=== PATIENT | female | born 1950 | race African-American/Black ===

== ENCOUNTER 2017-03-06 10:52 | Day surgery (SDC) | payer MEDICARE ==
[~2017-03-06 10:52] MED LIST: Acetaminophen TAB* 325 MG PO PRN; Buffered Lidocaine 0.9% SYRIN* 5 ML/SYR SYRINGE INTRADERM ONE
[2017-03-06] MEDS ORDERED: Midazolam* 1 MG/ML 5 ML VIAL (5 MG) ONE (13:36)
[2017-03-06] MEDS ORDERED: Lidocaine 1% MPF* 2 ML VIAL ONE (14:19)
[2017-03-06] MEDS ORDERED: Buffered Lidocaine 0.9% SYRIN* 5 ML/SYR SYRINGE ONE (14:19)
[2017-03-06] MEDS ORDERED: Cyclopentolate 1% OPTH.SOL* 2 ML BTL ONE (14:19)
[2017-03-06] MEDS ORDERED: Ketorolac 0.5% OPHTH (NF) 0.5 % 5 ML BTL ONE (14:19)
[2017-03-06] MEDS ORDERED: acetaZOLAMIDE TAB* 250 MG ONE (14:19)
[2017-03-06] MEDS ORDERED: Neomycin/Polymy/Dex OPTH.SUSP* MAXITROL 0.1% 5 ML ONE (14:19)
[2017-03-06] MEDS ORDERED: Povidone Iodine 5% OPTH* 30 ML BTL ONE (14:19)
[2017-03-06] MEDS ORDERED: Phenylephrine 2.5% OPTH.SOL* 2 ML BTL ONE (14:19)
[2017-03-06] MEDS ORDERED: Lidocaine 2% EPI 1:200000 MPF* 20 ML VIAL ONE (14:19)
[2017-03-06] MEDS ORDERED: Proparacaine 0.5% OPHTH.SOL* 15 ML BTL ONE (14:19)
[2017-03-06 14:39] VITALS: BP 150/75
--- NOTE | 2017-03-06 16:50 | OP ---
DATE OF OPERATION: 03/06/2017 - [facility] DATE OF : 1950. SURGEON: Frank Blanchard M.D. PREOPERATIVE DIAGNOSIS: Cataract left eye. POSTOPERATIVE DIAGNOSIS: Cataract left eye. OPERATIVE PROCEDURE: Phacoemulsification left eye with IOL. DESCRIPTION OF PROCEDURE: The patient was brought to the operating room after being given 1/2% Alcaine with epinephrine drops in the preoperative area. The eye was prepped and draped in the usual sterile fashion. Sterile drape and eyelid speculum were placed. Again, topical 1/2% Alcaine with epinephrine was given. A paracentesis incision was made at the 3 o'clock position with the No.75 blade. Clear cornea incision 2.2 x 2.2-mm was created at the 6 o'clock position starting at the anterior limbus using the 2.2-mm keratome. The anterior chamber was irrigated with 0.4 mL of 1% non-preservative intracameral lidocaine and filled with DisCoVisc. A capsulorrhexis was completed using the cystotome and the Utrata forceps. Hydrodissection was performed with balanced salt solution. The lens nucleus was removed with the Phacoemulsification handpiece without incident. Cortex was removed with the irrigation-aspiration handpiece. The capsular bag was re-inflated using DisCoVisc and an SN60WF 22.5 implant was inserted with the shooter. The irrigation-aspiration handpiece was used to remove all residual DisCoVisc. The eye was refilled with balanced salt solution and the wound checked and found to be watertight. Topical Maxitrol drops were given. [id number]/[facility] #: [id number] [facility] CENTERSamuel
== END 2017-03-06 14:48 | disposition home or self-care (01) ==
LOC: OREAST 10:52
PROVIDERS: ATTEND Specialist
DX: H25.812 Combined forms of age-related cataract, left eye (principal); Z79.84 Long term (current) use of oral hypoglycemic drugs; E03.9 Hypothyroidism, unspecified; E11.40 Type 2 diabetes mellitus with diabetic neuropathy, unspecified; Z79.891 Long term (current) use of opiate analgesic; G89.4 Chronic pain syndrome; I10 Essential (primary) hypertension; E66.01 Morbid (severe) obesity due to excess calories; M19.90 Unspecified osteoarthritis, unspecified site
CPT/HCPCS: A9270-GY; J2250; V2632

== ENCOUNTER 2017-11-03 16:28 | Emergency (ER) | payer OTHER ==
[2017-11-03 17:35] LABS: ABS Basophils 0.1 10^3/ul (0-0.2); ABS Eosinophils 0.2 10^3/ul (0-0.6); ABS Lymphocytes 2.4 10^3/ul (1.0-4.8); ABS Monocytes 0.6 10^3/ul (0-0.8); ABS Neutrophils 6.3 10^3/ul (1.5-7.7); ABS Nucleated RBC 0 10^3/ul; Eosinophil % 1.6 % (0-6); Hematocrit 34 % (35-47); Hemoglobin 11.3 g/dl (12.0-16.0); Lymphocyte % 25.1 % (25-47); Mean Corpuscular HGB Conc 33 g/dl (31-36); Mean Corpuscular Hemoglobin 26 pg (27-31); Mean Corpuscular Volume 78 fL (80-97); Mean Platelet Volume 8.2 um3 (7.4-10.4); Nucleated Red Blood Cells % 0; Platelet Count 275 10^3/ul (150-450); Red Blood Count 4.38 10^6/ul (4.00-5.40); Red Cell Distribution Width 15 % (10.5-15); White Blood Count 9.5 10^3/ul (3.5-10.8)
[2017-11-03 17:51] LABS: EGFR Non-African American 52.3 (>60)
--- NOTE | 2017-11-03 18:16 | ED ---
Lower Extremity - HPI Summary HPI Summary: Patient complains of increase in chronic diabetic neuropathy pain. Patient states she started Lyrica 2 months ago at 25 mg daily per PCP but it is not controlling pain. Has not discussed insufficient pain control with PCP. Patient also complained of exertional shortness of breath in triage, but stated during this providers exam that this is chronic and that there is no increase in same. Patient here for control of neuropathic pain. Denies any new trauma, fever, cough, sore throat, N/V/D, abdomen pain, CP, acute SOB, change in urine or BM. Ankle history is DM, hypothyroid, HDL, anemia, arthritis. - History of Current Complaint Chief Complaint: EDShortnessOfBreath Stated Complaint: DIFF BREATHING Time Seen by Provider: 11/03/17 17:38 Hx Obtained From: Patient Onset/Duration: Weeks Severity Initially: Mild Severity Currently: Moderate Pain Intensity: 6 Pain Scale Used: 0-10 Numeric Timing: Intermittent Location: Is Diffuse Character Of Pain: Sharp Associated Signs And Symptoms: Positive: Negative - Allergies/Home Medications Allergies/Adverse Reactions: Allergies Allergy/AdvReac Type Severity Reaction Status Date / Time No Known Allergies Allergy Verified 11/03/17 16:37 Home Medications: Home Medications Levothyroxine Sodium [Levoxyl] 50 mcg PO DAILY 11/03/17 [History Confirmed 11/03] PMH/Surg Hx/FS Hx/Imm Hx Endocrine/Hematology History: Reports: Hx Diabetes Denies: Hx Thyroid Disease Cardiovascular History: Reports: Hx Hypertension, Other Cardiovascular Problems/ Disorders - hyperlipidemia Respiratory History: Reports: Hx Asthma GI History: Reports: Hx Gastroesophageal Reflux Disease Denies: Hx Ulcer Musculoskeletal History: Reports: Hx Arthritis, Other Musculoskeletal History - chronic pain Sensory History: Reports: Hx Cataracts - bilateral, Hx Contacts or Glasses - glasses Opthamlomology History: Reports: Hx Cataracts - bilateral, Hx Contacts or Glasses - glasses Neurological History: Reports: Other Neuro Impairments/Disorders - neuropathy - Cancer History Hx Chemotherapy: No Hx Radiation Therapy: No - Surgical History Surgery Procedure, Year, and Place: pt never had surgery Hx Anesthesia Reactions: No - never had surgery Infectious Disease History: No Infectious Disease History: Reports: Hx Hepatitis - hypo Denies: Hx Clostridium Difficile, Hx Human Immunodeficiency Virus (HIV), Hx of Known/Suspected MRSA, Hx Shingles, Hx Tuberculosis, Hx Known/Suspected VRE, Hx Known/Suspected VRSA, History Other Infectious Disease, Traveled Outside the [place] in Last 30 Days - Social History Alcohol Use: None Substance Use Type: Reports: None Smoking Status (MU): Never Smoked Tobacco Have You Smoked in the Last Year: No Review of Systems Constitutional: Negative Eyes: Negative ENT: Negative Cardiovascular: Negative Respiratory: Negative Gastrointestinal: Negative Genitourinary: Negative Positive: Arthralgia, Myalgia Skin: Negative Neurological: Negative Psychological: Normal All Other Systems Reviewed And Are Negative: Yes Physical Exam Triage Information Reviewed: Yes Vital Signs On Initial Exam: Initial Vitals Temp Pulse Resp BP Pulse Ox 98.0 F 89 22 166/62 99 11/03/17 16:33 11/03/17 16:33 11/03/17 16:33 11/03/17 16:33 11/03/17 16:33 Vital Signs Reviewed: Yes Appearance: Positive: Well-Appearing Skin: Positive: Warm Head/Face: Positive: Normal Head/Face Inspection Eyes: Positive: Normal Neck: Positive: Supple Respiratory/Lung Sounds: Positive: Clear to Auscultation Cardiovascular: Positive: Normal Abdomen Description: Positive: Nontender Musculoskeletal: Positive: Normal Neurological: Positive: Normal Psychiatric: Positive: Normal AVPU Assessment: Alert - [place] Coma Scale Best Eye Response: 4 - Spontaneous Best Motor Response: 6 - Obeys Commands Best Verbal Response: 5 - Oriented Coma Scale Total: 15 Diagnostics - Vital Signs Vital Signs Temp Pulse Resp BP Pulse Ox 11/03/17 16:33 98.0 F 89 22 166/62 99 - Laboratory Lab Results: Lab Results 11/03/17 11/03/17 11/03/17 Range/Units 17:22 17:22 17:22 WBC 9.5 (3.5-10.8) 10^3/ul RBC 4.38 (4.00-5.40) 10^6/ul Hgb 11.3 L (12.0-16.0) g/dl Hct 34 L (35-47) % MCV 78 L (80-97) fL MCH 26 L (27-31) pg MCHC 33 (31-36) g/dl RDW 15 (10.5-15) % Plt Count 275 (150-450) 10^3/ul MPV 8.2 (7.4-10.4) um3 Neut % (Auto) 66.5 (38-83) % Lymph % (Auto) 25.1 (25-47) % [place] % (Auto) 6.1 (0-7) % Eos % (Auto) 1.6 (0-6) % Baso % (Auto) 0.7 (0-2) % Absolute Neuts (auto) 6.3 (1.5-7.7) 10^3/ul Absolute Lymphs (auto) 2.4 (1.0-4.8) 10^3/ul Absolute Monos (auto) 0.6 (0-0.8) 10^3/ul Absolute Eos (auto) 0.2 (0-0.6) 10^3/ul Absolute Basos (auto) 0.1 (0-0.2) 10^3/ul Absolute Nucleated RBC 0 10^3/ul Nucleated RBC % 0 Sodium 139 (135-145) mmol/L Potassium 3.6 (3.5-5.0) mmol/L Chloride 103 (101-111) mmol/L Carbon Dioxide 23 (22-32) mmol/L Anion Gap 13 H (2-11) mmol/L BUN 21 (6-24) mg/dL Creatinine 1.05 H (0.51-0.95) mg/dL Est GFR ( Amer) 63.3 (>60) Est GFR (Non-Af Amer) 52.3 (>60) BUN/Creatinine Ratio 20.0 (8-20) Glucose 55 L (70-100) mg/dL Calcium 10.4 H (8.6-10.3) mg/dL Troponin I 0.04 H* (<0.04) ng/mL B-Natriuretic Peptide 31 ( - 100) pg/mL Result Diagrams: 11/03/17 17:22 11/03/17 17:22 Lab Statement: Any lab studies that have been ordered have been reviewed, and results considered in the medical decision making process. - Radiology cxr Xray Interpretation: No Acute Changes Radiology Interpretation Completed By: Radiologist - EKG 1 Cardiac Rate: NL EKG Rhythm: Sinus Rhythm ST Segment: Non-Specific Lower Extremity Course/Dx - Course Course Of Treatment: Patient complains of increase in chronic diabetic neuropathy pain. Patient states she started Lyrica 2 months ago at 25 mg daily per PCP but it is not controlling pain. Has not discussed insufficient pain control with PCP. Patient also complained of exertional shortness of breath in triage, but stated during this providers exam that this is chronic and that there is no increase in same. Patient here for control of neuropathic pain. Denies any new trauma, fever, cough, sore throat, N/V/D, abdomen pain, CP, acute SOB, change in urine or BM. Ankle history is DM, hypothyroid, HDL, anemia , arthritis. Patient chief complaint is neuropathic pain. Denies any increase in chronic Exertional SOB. Vital signs within normal limits and stable. Labs unremarkable except for slightly elevated troponin. Discussed patient with Dr. Cancino who okays discharge and follow-up with primary care. EKG within normal limits. Hemoglobin at patient baseline. - Diagnoses Provider Diagnoses: Neuropathic pain Discharge - Sign-Out/Discharge Documenting (check all that apply): Patient Departure - Discharge Plan Condition: Stable Disposition: HOME Patient Education Materials: Diabetic Peripheral Neuropathy (ED) Referrals: Rivera Mejía MD [Primary Care Provider] - Additional Instructions: Follow-up with primary care for control of neuropathic pain. Return to the ED for any new or worsening symptoms - Billing Disposition and Condition Condition: STABLE Disposition: Home
--- NOTE | 2017-11-03 18:30 | RAD ---
INDICATION: Shortness of breath. COMPARISON: Similar chest x-ray dated December 05, 2014 TECHNIQUE: PA and lateral views of the chest were obtained. FINDINGS: The heart and mediastinum are normal in size and contour. The lungs are grossly clear. There is no evidence of large pleural effusion. Visualized bones are normal for the patient's age. There is no radiographic evidence of free air beneath the diaphragm IMPRESSION: No radiographic evidence of acute cardiopulmonary disease.
[2017-11-03] MEDS ORDERED: Acetaminophen TAB* 325 MG PO ONE (19:41)
[2017-11-03 20:00] VITALS: BP 145/98
== END 2017-11-03 19:59 | disposition home or self-care (01) ==
LOC: ED 16:28
DX: E11.40 Type 2 diabetes mellitus with diabetic neuropathy, unspecified (principal); E03.9 Hypothyroidism, unspecified; D64.9 Anemia, unspecified; M19.90 Unspecified osteoarthritis, unspecified site; Z79.899 Other long term (current) drug therapy
CPT/HCPCS: 36415; 71046; 80048; 83880; 84484; 85025; 93005; 99283

== ENCOUNTER 2018-07-06 11:16 | Emergency (ER) | payer MEDICARE ==
--- NOTE | 2018-07-06 11:31 | ED ---
Respiratory - HPI Summary HPI Summary: Patient is a 68 y/o female who presents to the ED c/o SOB. Four weeks ago she began to have cough and congestion. She now states that she is constantly SOB, has a mild sore throat due to coughing, and has generalized weakness after coughing bouts. Patient denies any rhinorrhea. Patient rates her pain as a 3/10 in severity. She states her grandchildren have been sick recently. PMHx DM and HTN. She denies any hx of CHF, COPD, or pleural effusions. Pt often gets bronchitis when she is ill. She states her BG has been normal recently, and takes both insulin and 1000 mg Metformin BID. Patient denies any smoking. - History of Current Complaint Chief Complaint: EDUpperRespComplaint Stated Complaint: COUGH, SHORTNESS OF BREATH PER PT Time Seen by Provider: 07/06/18 11:26 Hx Obtained From: Patient Onset/Duration: Gradual Onset, Lasting Weeks - 4, Worse Since Timing: Constant Current Severity: Moderate Pain Intensity: 4 Character: Cough (Nonproductive), Dyspnea at Rest Sputum Amount: None Aggravating Factor(s): Nothing Alleviating Factor(s): Nothing Associated Signs and Symptoms: SOB, Nasal Congestion Related History: Similar Episode/Dx as - hx asthma - Allergy/Home Medications Allergies/Adverse Reactions: Allergies Allergy/AdvReac Type Severity Reaction Status Date / Time No Known Allergies Allergy Verified 07/06/18 11:25 Home Medications: Home Medications Albuterol Sulfate [Ventolin Hfa] 1 puff INH DAILY 07/06/18 [History Confirmed ] Atorvastatin* [Lipitor*] 80 mg PO 1700 07/06/18 [History Confirmed 07/06/18] Chlorthalidone 1 tab PO DAILY 07/06/18 [History Confirmed 07/06/18] Insulin ISOPH/REG 70/30 (*) [HumuLIN 70/30 (*)] 1 dose SUBCUT BID 07/06/18 [ History Confirmed 07/06/18] Levothyroxine Sodium 1 tab PO DAILY 07/06/18 [History Confirmed 07/06/18] Losartan Potassium [Cozaar] 50 mg PO DAILY 07/06/18 [History Confirmed 07/06/18] Oxybutynin TAB* [Ditropan TAB*] 5 mg PO BID 07/06/18 [History Confirmed 07/06/18 ] Pregabalin CAP(*) [Lyrica CAP(*)] 1 cap PO BID 07/06/18 [History Confirmed 07/06] metFORMIN* [Glucophage 1000 MG TAB *] 1 tab PO BID 07/06/18 [History Confirmed 07/06/18] PMH/Surg Hx/FS Hx/Imm Hx Endocrine/Hematology History: Reports: Hx Diabetes Denies: Hx Thyroid Disease Cardiovascular History: Reports: Hx Hypertension, Other Cardiovascular Problems/ Disorders - hyperlipidemia Denies: Hx Congestive Heart Failure Respiratory History: Denies: Hx Chronic Obstructive Pulmonary Disease (COPD), Other Respiratory Problems/Disorders - pleural effusions GI History: Reports: Hx Gastroesophageal Reflux Disease Denies: Hx Ulcer Musculoskeletal History: Reports: Hx Arthritis, Other Musculoskeletal History - chronic pain Sensory History: Reports: Hx Cataracts - bilateral, Hx Contacts or Glasses - glasses Opthamlomology History: Reports: Hx Cataracts - bilateral, Hx Contacts or Glasses - glasses Neurological History: Reports: Other Neuro Impairments/Disorders - neuropathy - Cancer History Hx Chemotherapy: No Hx Radiation Therapy: No - Surgical History Surgery Procedure, Year, and Place: pt never had surgery Hx Anesthesia Reactions: No - never had surgery Infectious Disease History: No Infectious Disease History: Reports: Hx Hepatitis - hypo Denies: Hx Clostridium Difficile, Hx Human Immunodeficiency Virus (HIV), Hx of Known/Suspected MRSA, Hx Shingles, Hx Tuberculosis, Hx Known/Suspected VRE, Hx Known/Suspected VRSA, History Other Infectious Disease, Traveled Outside the [place] in Last 30 Days - Family History Known Family History: Negative: Cardiac Disease - Social History Alcohol Use: None Hx Substance Use: No Substance Use Type: Reports: None Hx Tobacco Use: No Smoking Status (MU): Never Smoked Tobacco Have You Smoked in the Last Year: No Review of Systems Positive: Sore Throat - due to coughing, Other - congestion. Negative: Nasal Discharge Positive: Shortness Of Breath, Cough Positive: Weakness - generalized - after coughing All Other Systems Reviewed And Are Negative: Yes Physical Exam - Summary Physical Exam Summary: Appearance: Well appearing, no pain distress Skin: warm, dry, reflects adequate perfusion Head/face: normal Eyes: EOMI, BRIAN ENT: mucous membranes moist Neck: supple, non-tender Respiratory: CTA, breath sounds present, tachypneic, dyspneic Cardiovascular: RRR, pulses symmetrical Abdomen: non-tender, soft Bowel Sounds: present Musculoskeletal: normal, strength/ROM intact Neuro: normal, sensory motor intact, A&Ox3 Triage Information Reviewed: Yes Vital Signs On Initial Exam: Initial Vitals Temp Pulse Resp BP Pulse Ox 99.1 F 96 22 168/115 98 07/06/18 11:20 07/06/18 11:20 07/06/18 11:20 07/06/18 11:20 07/06/18 11:20 Vital Signs Reviewed: Yes Diagnostics - Vital Signs Vital Signs Temp Pulse Resp BP Pulse Ox 07/06/18 11:20 99.1 F 96 22 168/115 98 - Laboratory Result Diagrams: 07/06/18 12:06 07/06/18 12:06 Lab Statement: Any lab studies that have been ordered have been reviewed, and results considered in the medical decision making process. - Radiology CXR Radiology Interpretation Completed By: Radiologist Summary of Radiographic Findings: NO ACTIVE CARDIOPULMONARY DISEASE. ED physician reviewed radiology report. Re-Evaluation - Re-Evaluation First Eval Re-Evaluation Time: 12:56 Change: Improved Comment: Pt feels much better after breathing treatments. Disposition - Course Course Of Treatment: Nurse's notes reviewed. Patient with a history of reactive airway disease with cough and cold symptoms presents with similar today. She is feeling much improved with breathing treatments and was loaded with steroid. She is aware that she may need require increased doses of insulin while on steroids. Her lungs are clear there is no infiltrate on x- ray. Laboratories are benign. She is discharged to follow closely with her primary care physician. - Differential Dx - Cardiopulmonary Differential Diagnoses - Cardiopulmonary: Asthma, Bronchitis, Exacerbation Of COPD, Influenza, Lower Resp Infection - Diagnoses Provider Diagnoses: Dyspnea, Acute bronchitis Discharge - Sign-Out/Discharge Documenting (check all that apply): Patient Departure - Discharge Patient Received Moderate/Deep Sedation with Procedure: No - Discharge Plan Condition: Improved Disposition: HOME Prescriptions: Albuterol/Ipratropium NEB.ERIC* [Duoneb (Albuterol 2.5 MG/Ipratropium 0.5 MG)] 1 neb INH Q4H PRN #1 box PRN Reason: Sob/Wheezing predniSONE TAB* [Deltasone TAB*] 50 mg PO DAILY #3 tab Patient Education Materials: Acute Bronchitis (ED) Referrals: Rivera Mejía MD [Primary Care Provider] - Additional Instructions: Prescribe steroids may make your blood sugar rise. Check it frequently and increased your insulin as needed. Call your doctor first thing in the morning to schedule prompt follow-up. Return with increased difficulty breathing, high fever, worse, new symptoms or other concerns. - Billing Disposition and Condition Condition: IMPROVED Disposition: Home - Attestation Statements Document Initiated by Med: Yes Documenting Scribe: Sarahi Solis Provider For Whom Med is Documenting (Include Credential): Josef Arndt MD Scribe Attestation: ISarahi, scribed for Josef Arndt MD on 07/06/18 at 1531. Scribe Documentation Reviewed: Yes Provider Attestation: The documentation as recorded by the Sarahi peralta accurately reflects the service I personally performed and the decisions made by , Josef Arndt MD Status of Scribe Document: Viewed
[2018-07-06] MEDS ORDERED: Albuterol/Ipratropium NEB.SOL* Albuterol 2.5 MG/Ipratropium 0.5 MG 3 ML INH ONE (11:36)
[2018-07-06 12:00] LABS: Influenza A Molecular NEGATIVE (Negative); Influenza B Molecular NEGATIVE (Negative)
[2018-07-06 12:19] LABS: ABS Basophils 0 10^3/ul (0-0.2); ABS Eosinophils 0.2 10^3/ul (0-0.6); ABS Lymphocytes 1.3 10^3/ul (1.0-4.8); ABS Monocytes 0.5 10^3/ul (0-0.8); ABS Nucleated RBC 0 10^3/ul; Eosinophil % 2.2 %; Hematocrit 36 % (33-41); Hemoglobin 11.5 g/dL (12.0-16.0); Mean Corpuscular HGB Conc 32 g/dL (31-36); Mean Corpuscular Hemoglobin 25 pg (27-31); Mean Corpuscular Volume 78 fL (80-97); Mean Platelet Volume 8.4 fL (7.4-10.4); Nucleated Red Blood Cells % 0; Platelet Count 254 10^3/uL (150-450); Red Blood Count 4.55 10^6 /uL (3.70-4.87); Red Cell Distribution Width 16 % (10.5-15)
[2018-07-06 12:29] LABS: BUN/Creatinine Ratio 18.9 (8-20); Calcium 9.8 mg/dL (8.6-10.3); EGFR African American 75.3 (>60); EGFR Non-African American 62.3 (>60); Potassium 3.6 mmol/L (3.5-5.0)
[2018-07-06] MEDS ORDERED: NS 0.9% 1000 ML** 1,000 ML IV ONE (12:36)
[2018-07-06] MEDS ORDERED: predniSONE TAB* 20 MG PO ONE (12:58)
[2018-07-06 13:05] VITALS: BP 139/87
== END 2018-07-06 13:04 | disposition home or self-care (01) ==
LOC: ED 11:16
DX: J20.9 Acute bronchitis, unspecified (principal); R06.00 Dyspnea, unspecified; E11.9 Type 2 diabetes mellitus without complications; I10 Essential (primary) hypertension; E78.5 Hyperlipidemia, unspecified; Z79.4 Long term (current) use of insulin
CPT/HCPCS: 36415; 71046; 80048; 83605; 83880; 85025; 99283; A9270-GY; J7512

== ENCOUNTER 2021-05-04 10:14 | Inpatient (IN) ==
[2021-05-04] MEDS ORDERED: Lactated Ringers 1000 ml BAG 1,000 ML IV ONE ×2 (10:51→12:28)
[2021-05-04 11:19] LABS: PCO2 Arterial 31 mmHg (35-45); PO2 Arterial 75 mmHg (80-100)
[2021-05-04 11:56] LABS: ABS Eosinophils 0.1 10^3/ul (0-0.6); ABS Lymphocytes 0.9 10^3/ul (1.0-4.8); ABS Monocytes 0.9 10^3/ul (0-0.8); ABS Neutrophils 13.3 10^3/ul (1.5-7.7); Eosinophil % 0.4 %; Hematocrit 36 % (35-47); Hemoglobin 11.6 g/dL (12.0-16.0); Lymphocyte % 5.8 %; Mean Corpuscular HGB Conc 32 g/dL (31-36); Mean Corpuscular Hemoglobin 26 pg (27-31); Mean Corpuscular Volume 79 fL (80-97); Mean Platelet Volume 9.9 fL (7.4-10.4); Platelet Count 118 10^3/uL (150-450); Red Blood Count 4.53 10^6 /uL (3.70-4.87); Red Cell Distribution Width 15 % (10-15); White Blood Count 15.2 10^3/uL (3.5-10.8)
[2021-05-04 12:05] LABS: Rapid COVID-19 Molecular Undetected (Undetected)
[2021-05-04 12:06] LABS: Influenza A Molecular Negative (Negative); Influenza B Molecular Negative (Negative)
[2021-05-04 12:19] LABS: ALT 77 U/L (7-52); AST 34 U/L (13-39); Albumin 3.4 g/dL (3.2-5.2); Albumin/Globulin Ratio 0.8 (1-3); Alkaline Phosphatase 168 U/L (35-149); Anion Gap 11 mmol/L (2-11); Blood Urea Nitrogen 103 mg/dL (6-24); CO2 Carbon Dioxide 23 mmol/L (22-32); Calcium 10.9 mg/dL (8.6-10.3); Chloride 100 mmol/L (101-111); Globulin 4.1 g/dL (2-4); Glucose 410 mg/dL (70-100); Potassium 4.1 mmol/L (3.5-5.0); Sodium 134 mmol/L (135-145); Total Protein 7.5 g/dL (6.4-8.9); eGFR CKD-EPI 17.6 (>60)
[2021-05-04] MEDS ORDERED: Azithromycin 500 mg/250 ml NS 500 MG/250 ML BAG IVPB ONE (12:24)
[2021-05-04] MEDS ORDERED: cefTRIAXone 1 gm/50 mL NS BAG 1 GM/50 ML BAG IV ONE (12:24)
[2021-05-04 12:35] LABS: Troponin I 0.05 ng/mL (<0.03)
[2021-05-04 13:52] LABS: Urine Appearance Turbid; Urine Bilirubin Negative (Negative); Urine Blood 2+ (Negative); Urine Color Yellow; Urine Glucose 2+(150 mg/dL) (Negative); Urine Ketones Negative (Negative); Urine Nitrite Negative (Negative); Urine Protein Negative (Negative); Urine Specific Gravity 1.013 (1.002-1.030); Urine Urobilinogen Negative (Negative)
[2021-05-04 13:59] LABS: Urine Bacteria 3+ (Absent); Urine Red Blood Cell 3+(>10/hpf) (Absent); Urine Squamous Epithelial Cell Present (Absent); Urine White Blood Cell 3+(>20/hpf) (Absent)
[2021-05-04] MEDS ORDERED: Albuterol HFA INHALER 8 gm MDI INH PRN (15:13)
[2021-05-04] MEDS ORDERED: Dextrose 50% Syringe 50 ml 25 GM/50 ML SYRINGE IV PUSH PRN (15:18)
[2021-05-04 16:16] LABS: Troponin I 0.04 ng/mL (<0.03)
[2021-05-04] MEDS ORDERED: Insulin ISOPH/REG 70/30 SUBCUT SCH (16:30)
[2021-05-04 16:39] LABS: Blood Urea Nitrogen 101 mg/dL (6-24); CO2 Carbon Dioxide 22 mmol/L (22-32); Calcium 10.3 mg/dL (8.6-10.3); Chloride 102 mmol/L (101-111); Glucose 393 mg/dL (70-100); Sodium 133 mmol/L (135-145); eGFR CKD-EPI 20.5 (>60)
[2021-05-04] MEDS ORDERED: Lactated Ringers 1000 ml BAG 1,000 ML IV SCH (16:45)
[2021-05-04 17:45] LABS: Anion Gap 9 mmol/L (2-11)
[2021-05-04] MEDS: Heparin 5000 UNITS/ML 1 mL VIAL SUBCUT SCH (21:19)
[2021-05-05 05:08] LABS: Albumin 3.3 g/dL (3.2-5.2); Albumin/Globulin Ratio 0.9 (1-3); Calcium 10.4 mg/dL (8.6-10.3); Globulin 3.5 g/dL (2-4); Magnesium 1.4 mg/dL (1.9-2.7); Potassium 3.7 mmol/L (3.5-5.0); Total Bilirubin 1.3 mg/dL (0.2-1.0); Total Protein 6.8 g/dL (6.4-8.9); eGFR CKD-EPI 28.1 (>60)
[2021-05-05 05:13] LABS: ABS Eosinophils 0.1 10^3/ul (0-0.6); ABS Lymphocytes 0.9 10^3/ul (1.0-4.8); ABS Monocytes 0.7 10^3/ul (0-0.8); ABS Neutrophils 8.9 10^3/ul (1.5-7.7); Eosinophil % 0.7 %; Hematocrit 35 % (35-47); Hemoglobin 11.4 g/dL (12.0-16.0); Lymphocyte % 8.1 %; Mean Corpuscular HGB Conc 33 g/dL (31-36); Mean Corpuscular Hemoglobin 26 pg (27-31); Mean Corpuscular Volume 81 fL (80-97); Platelet Count 112 10^3/uL (150-450); Red Blood Count 4.31 10^6 /uL (3.70-4.87); Red Cell Distribution Width 15 % (10-15); White Blood Count 10.6 10^3/uL (3.5-10.8)
[2021-05-05] MEDS: Heparin 5000 UNITS/ML 1 mL VIAL SUBCUT SCH ×3 (05:15→22:15)
[2021-05-05 05:25] LABS: TSH Ultra Thyroid Stim Horm 3.94 mcIU/mL (0.34-5.60)
[2021-05-05] MEDS ORDERED: Potassium Chlor 20 meq TAB.ER PO ONE (07:06)
[2021-05-05] MEDS ORDERED: Magnesium Sulf 4 GM/100 ML IV 4,000 MG/100 ML BAG IVPB ONE (07:06)
[2021-05-05] MEDS ORDERED: Insulin ISOPH/REG 70/30 SUBCUT SCH (07:30)
[2021-05-05] MEDS ORDERED: Azithromycin 500 mg/250 ml NS 500 MG/250 ML BAG IVPB SCH (09:30)
[2021-05-05] MEDS: Polyethylene Glycol 3350 17 GM PACKET PO SCH (09:33)
[2021-05-05] MEDS: cefTRIAXone 1 gm/50 mL NS BAG 1 GM/50 ML BAG IVPB SCH (09:36)
[2021-05-05] MEDS ORDERED: Lactated Ringers 1000 ml BAG 1,000 ML IV SCH (10:00)
[2021-05-05] MEDS ORDERED: Dextrose 50% Syringe 50 ml 25 GM/50 ML SYRINGE IV PUSH PRN (13:09)
[2021-05-05] MEDS: Calcium Carb (TUMS) 500 mg CHEW TAB PO PRN (16:36)
[2021-05-05] MEDS: Insulin ISOPH/REG 70/30 SUBCUT SCH (17:33)
[2021-05-06] MEDS: Heparin 5000 UNITS/ML 1 mL VIAL SUBCUT SCH ×3 (05:43→20:44)
[2021-05-06 06:13] LABS: ABS Lymphocytes 1.1 10^3/ul (1.0-4.8); ABS Monocytes 0.9 10^3/ul (0-0.8); ABS Neutrophils 10.4 10^3/ul (1.5-7.7); Eosinophil % 0.3 %; Hematocrit 32 % (35-47); Hemoglobin 10.2 g/dL (12.0-16.0); Lymphocyte % 8.6 %; Mean Corpuscular HGB Conc 32 g/dL (31-36); Mean Corpuscular Hemoglobin 26 pg (27-31); Mean Corpuscular Volume 81 fL (80-97); Mean Platelet Volume 9.8 fL (7.4-10.4); Platelet Count 141 10^3/uL (150-450); Red Blood Count 3.93 10^6 /uL (3.70-4.87); Red Cell Distribution Width 15 % (10-15); White Blood Count 12.4 10^3/uL (3.5-10.8)
[2021-05-06 06:40] LABS: Albumin 3.1 g/dL (3.2-5.2); Albumin/Globulin Ratio 0.8 (1-3); Calcium 11.1 mg/dL (8.6-10.3); Magnesium 1.8 mg/dL (1.9-2.7); Total Protein 7.1 g/dL (6.4-8.9); eGFR CKD-EPI 38.2 (>60)
[2021-05-06] MEDS: Polyethylene Glycol 3350 17 GM PACKET PO SCH (08:04)
[2021-05-06] MEDS: Insulin ISOPH/REG 70/30 SUBCUT SCH ×2 (08:08→17:39)
[2021-05-06] MEDS: cefTRIAXone 1 gm/50 mL NS BAG 1 GM/50 ML BAG IVPB SCH (08:17)
[2021-05-06] MEDS ORDERED: Benzocaine/Menthol LOZ PO PRN (16:09)
[2021-05-07] MEDS: Heparin 5000 UNITS/ML 1 mL VIAL SUBCUT SCH ×3 (05:58→20:08)
[2021-05-07 08:28] LABS: ABS Eosinophils 0.1 10^3/ul (0-0.6); ABS Lymphocytes 1.2 10^3/ul (1.0-4.8); ABS Monocytes 0.7 10^3/ul (0-0.8); ABS Neutrophils 10.5 10^3/ul (1.5-7.7); Eosinophil % 0.5 %; Hematocrit 30 % (35-47); Hemoglobin 10.1 g/dL (12.0-16.0); Lymphocyte % 9.6 %; Mean Corpuscular HGB Conc 33 g/dL (31-36); Mean Corpuscular Hemoglobin 26 pg (27-31); Mean Corpuscular Volume 79 fL (80-97); Mean Platelet Volume 9.4 fL (7.4-10.4); Platelet Count 160 10^3/uL (150-450); Red Blood Count 3.83 10^6 /uL (3.70-4.87); Red Cell Distribution Width 15 % (10-15); White Blood Count 12.5 10^3/uL (3.5-10.8)
[2021-05-07 08:47] LABS: Albumin/Globulin Ratio 0.8 (1-3); Calcium 10.8 mg/dL (8.6-10.3); Magnesium 1.4 mg/dL (1.9-2.7); Potassium 3.5 mmol/L (3.5-5.0); Total Bilirubin 0.9 mg/dL (0.2-1.0); eGFR CKD-EPI 47.4 (>60)
[2021-05-07] MEDS: cefTRIAXone 1 gm/50 mL NS BAG 1 GM/50 ML BAG IVPB SCH (09:03)
[2021-05-07] MEDS: Polyethylene Glycol 3350 17 GM PACKET PO SCH (09:04)
[2021-05-07] MEDS: Insulin ISOPH/REG 70/30 SUBCUT SCH ×2 (09:04→17:20)
[2021-05-07] MEDS ORDERED: Magnesium Sulf 4 GM/100 ML IV 4,000 MG/100 ML BAG IVPB ONE (15:29)
[2021-05-08] MEDS: Heparin 5000 UNITS/ML 1 mL VIAL SUBCUT SCH ×3 (05:28→21:15)
[2021-05-08 06:22] LABS: ABS Eosinophils 0.1 10^3/ul (0-0.6); ABS Lymphocytes 1.4 10^3/ul (1.0-4.8); ABS Monocytes 0.9 10^3/ul (0-0.8); ABS Neutrophils 10.2 10^3/ul (1.5-7.7); Eosinophil % 0.7 %; Hematocrit 30 % (35-47); Hemoglobin 9.7 g/dL (12.0-16.0); Lymphocyte % 11.4 %; Mean Corpuscular HGB Conc 33 g/dL (31-36); Mean Corpuscular Hemoglobin 26 pg (27-31); Mean Corpuscular Volume 79 fL (80-97); Mean Platelet Volume 9.3 fL (7.4-10.4); Platelet Count 177 10^3/uL (150-450); Red Blood Count 3.74 10^6 /uL (3.70-4.87); Red Cell Distribution Width 15 % (10-15); White Blood Count 12.6 10^3/uL (3.5-10.8)
[2021-05-08 06:45] LABS: Albumin/Globulin Ratio 0.8 (1-3); Calcium 10.6 mg/dL (8.6-10.3); Potassium 3.4 mmol/L (3.5-5.0); Total Bilirubin 0.8 mg/dL (0.2-1.0); eGFR CKD-EPI 48.4 (>60)
[2021-05-08] MEDS: Insulin ISOPH/REG 70/30 SUBCUT SCH ×2 (10:07→17:40)
[2021-05-08] MEDS: Polyethylene Glycol 3350 17 GM PACKET PO SCH (10:52)
[2021-05-08] MEDS: cefTRIAXone 1 gm/50 mL NS BAG 1 GM/50 ML BAG IVPB SCH (10:53)
[2021-05-08] MEDS: Calcium Carb (TUMS) 500 mg CHEW TAB PO PRN ×2 (10:58→19:56)
[2021-05-08] MEDS ORDERED: Potassium Chlor 20 meq TAB.ER PO ONE (21:10)
[2021-05-09] MEDS: Heparin 5000 UNITS/ML 1 mL VIAL SUBCUT SCH ×2 (05:49→15:45)
[2021-05-09 07:52] LABS: Albumin 3.1 g/dL (3.2-5.2); Albumin/Globulin Ratio 0.8 (1-3); Calcium 10.7 mg/dL (8.6-10.3); Magnesium 1.4 mg/dL (1.9-2.7); Potassium 3.6 mmol/L (3.5-5.0); Total Bilirubin 0.6 mg/dL (0.2-1.0); Total Protein 7.1 g/dL (6.4-8.9); eGFR CKD-EPI 59.5 (>60)
[2021-05-09 08:10] LABS: ABS Basophils 0.1 10^3/ul (0-0.2); ABS Eosinophils 0.1 10^3/ul (0-0.6); ABS Lymphocytes 1.4 10^3/ul (1.0-4.8); ABS Monocytes 0.8 10^3/ul (0-0.8); Eosinophil % 0.9 %; Hematocrit 29 % (35-47); Hemoglobin 9.7 g/dL (12.0-16.0); Lymphocyte % 14.8 %; Mean Corpuscular HGB Conc 33 g/dL (31-36); Mean Corpuscular Hemoglobin 27 pg (27-31); Mean Corpuscular Volume 81 fL (80-97); Mean Platelet Volume 9.7 fL (7.4-10.4); Platelet Count 194 10^3/uL (150-450); Red Blood Count 3.64 10^6 /uL (3.70-4.87); Red Cell Distribution Width 15 % (10-15); White Blood Count 9.3 10^3/uL (3.5-10.8)
[2021-05-09] MEDS: Insulin ISOPH/REG 70/30 SUBCUT SCH (08:56)
[2021-05-09] MEDS: cefTRIAXone 1 gm/50 mL NS BAG 1 GM/50 ML BAG IVPB SCH (08:56)
[2021-05-09] MEDS: Polyethylene Glycol 3350 17 GM PACKET PO SCH (08:56)
[2021-05-09 11:55] LABS: C Reactive Protein 92.98 mg/L (<8.01)
[2021-05-09] MEDS ORDERED: Magnesium Sulfate 2 gm BAG 2 GM/50 ML BAG IVPB ONE (15:24)
[2021-05-09] MEDS ORDERED: Potassium Chloride LIQUID 20 MEQ/15 ML LIQUID PO ONE (15:24)
[2021-05-09] MEDS: Calcium Carb (TUMS) 500 mg CHEW TAB PO PRN (15:42)
[2021-05-09 16:29] VITALS: BP 111/53
== END 2021-05-09 17:55 | disposition home or self-care (01) | DRG 871 ==
LOC: ED 10:14 → SUATTDRO 15:01 → MED 15:01
PROVIDERS: ADMIT Student in an Organized Health Care Education/Training Program; ATTEND Family Medicine